=== PATIENT | female | born 1965 | race Caucasian/White ===

== ENCOUNTER 2020-03-08 13:26 | Outpatient (RCR) | payer BC, SELFPAY ==
--- NOTE | 2020-03-08 15:08 | PTOPEVAL ---
Thank you for referring Sonia Weinstein to [facility].? The patient is scheduled to be seen for therapy? ____x/week for ___ weeks. Please review, sign, date and return this plan of care VLADISLAV. I agree with and certify that the following plan of care is medically necessary. Referring Physician Date Admitting Provider: Attending Provider: PHYSICIAN NOT ON STAFF Referring Provider: *PT Outpatient Evaluation Start: 03/08/20 14:05 Freq: Status: Active Protocol: Document 03/08/20 14:05 JANN (Rec: 03/08/20 15:07 JANN [email or web address]) Therapy Assessment Status Assessment Status Assessment Status Evaluation Evaluation Information Problem Diagnosis s/p R TKA revision Onset 03/01/20 Subjective Information patient reports she had her R Query Text:As Reported By Patient/ TKA revised on 03/01/20 with a Family new replacement due to wearing out of her prior prosthesis. she reports she is having pain increased in the R knee for the past few days. she reports she has been elevating and iceing her leg since surgery. she reports she did not have any home health since surgery. patient reports she is walking with a walker still. Prior Level of Function Comments Additional Prior Level of Function patient reports prior to Comments surgery, no need for ad, able to ambulate up and down steps marked time, and was able to drive. Pain Assessment Timing of Pain Assessment Timing of Pain Assessment Assessment Pain Scale Pain Scale Used Numeric (1 - 10) Self Report Pain Assessment Right Knee(s) Reported Pain Level 8 Lowest Pain Intensity 0 Greatest Pain Intensity 8 Pain Score Pain Score 8: Self Report Interventions Used Interventions Used By Clinicians Activity or ADL's,Education, Elevation,Exercise,Ice Lower Extremity Range of Motion Knee Range of Motion Right Knee Flexion Range of Motion - Active 55 Knee Extension Range of Motion - Active -12 Query Text: Left Knee Flexion Range of Motion - Active 125 Knee Extension Range of Motion - Active -10 Query Text: Lower Extremity Muscle Strength Testing Hip Strength Right Hip Flexion Strength 3+ Fair + Hip Strength Comments 5 degrees R knee extension lag Left Hip Flexion Strength
--- NOTE | 2020-05-05 16:16 | PCPTNOTE ---
05/05/20 - patient has not been to therapy in several weeks. patient has been called and reports that are not going to continue therapy at this time. as of this date, they will be dc'd from skilled PT services, and all progress towards goals will be taken from their most recent evaluation/note. JANN
== END 2020-03-17 08:43 | disposition home or self-care (01) ==
LOC: CHSPT 13:26
DX: Z96.651 Presence of right artificial knee joint (principal)
CPT/HCPCS: 97016; 97110; 97161

== ENCOUNTER 2021-11-06 08:56 | Outpatient (RCR) | payer BC, SELFPAY ==
--- NOTE | 2021-11-06 11:06 | PTOPEVAL ---
Thank you for referring Sonia Weinstein to [facility].? The patient is scheduled to be seen for therapy? 1-2x/week for 10 visits. Please review, sign, date and return this plan of care VLADISLAV. I agree with and certify that the following plan of care is medically necessary. Referring Physician Date Admitting Provider: Attending Provider: Bonnie Lugo Referring Provider: RicoPT Outpatient Evaluation Start: 11/06/21 08:24 Freq: Status: Active Protocol: Document 11/06/21 08:25 [facility] (Rec: 11/06/21 09:58 [facility] [email or web address]) Therapy Assessment Status Assessment Status Assessment Status Evaluation Evaluation Information Problem Diagnosis Low back pain Onset 09/18/2021 Subjective Information Pt had lumbar spine surgery on Query Text:As Reported By Patient/ 09/18/21 due to chronic leg Family pain and radicular symptoms into both legs. After surgery, her L leg no longer experiences radicular symptoms . Her R LE symptoms are centralizing but are still present up to her knee. Pt reports back pain was getting worse over the years, and after an MRI, they performed surgery for stenosis. She has restrictions to lift no more than 20 lbs. She notices pain when getting up from sitting, twisting, or walking. Pain is described as a jabbing pain in her R hip and thigh. Goes back to work on Saturday, concerned for how much she will be sitting during the day . Has been doing some exercises. Pt likes to camp and hike. Prior Level of Function Activity Level (Last 3 Months) Occupation Ship Steward Activity of Daily Living Ability Independent Indoor/Home Mobility Independent Community Mobility Independent Stairs Ability Independent Functional Cognition (Planning, Shopping Independent , Taking Medications) Cooking Yes Cleaning Yes Laundry Yes Shopping Yes Driving Yes Pain Assessment Timing of Pain Assessment Timing of Pain Assessment Pre-Treatment Pain Scale Pain Scale Used
== END 2021-12-04 16:13 | disposition home or self-care (01) ==
LOC: CHSPT 08:56
PROVIDERS: PCP Family Medicine
DX: M51.36 Other intervertebral disc degeneration, lumbar region (principal); M48.062 Spinal stenosis, lumbar region with neurogenic claudication
CPT/HCPCS: 97110; 97161; 97530